=== PATIENT | female | born 1995 | race Asian ===

== ENCOUNTER 2024-01-17 12:41 | Emergency (ER) | payer OTHER ==
[~2024-01-17] VITALS: Ht 157.5 cm; Wt 54.5 kg
[2024-01-17 12:46] VITALS: BP 124/65; PULSE 68; RESP 18; TEMP 98.4
[2024-01-17] MEDS: LIDOCAINE 1% 10 ML VIAL SQ ONE (15:12)
[2024-01-17] MEDS ORDERED: IBUP-1492 PO (15:56)
[2024-01-17] MEDS ORDERED: SULF-261 PO (15:56)
[2024-01-17] MEDS ORDERED: CEPH-558 PO (15:56)
[2024-01-17] MEDS ORDERED: PERCT PO (15:56)
== END 2024-01-17 17:39 | disposition home or self-care (01) ==
LOC: EMS 12:41
DX: L02.213 Cutaneous abscess of chest wall (principal)
CPT/HCPCS: 99283; 10060; J3490